=== PATIENT | female | born 1980 | race Caucasian/White ===

== ENCOUNTER 2017-04-28 12:30 | Inpatient (IN) | payer OTHER ==
[~2017-04-28] VITALS: Ht 170.2 cm; Wt 70.8 kg
[2017-05-10] MEDS ORDERED: PRENATAL TABLE1 EAC2 PO (10:44)
[2017-05-10] MEDS ORDERED: INFED50 MG/ML IJ (10:48)
[2017-05-13] MEDS ORDERED: ATABEX EC CAPL1 EACH PO (09:31)
[2017-05-13] MEDS ORDERED: PROFERRIN-FORT1 EACH PO (09:31)
== END 2017-05-13 10:09 | disposition home or self-care (01) | DRG 766 ==
LOC: LDR 05-10 09:55 → OB/GYN 05-10 09:55
PROVIDERS: Obstetrics & Gynecology
PROC: 4A1HXCZ Monitoring of Products of Conception, Cardiac Rate, External Approach (ICD-10-PCS; 2017-05-10)
PROC: 3E033VJ Introduction of Other Hormone into Peripheral Vein, Percutaneous Approach (ICD-10-PCS; 2017-05-10)
PROC: 4A033R1 Measurement of Arterial Saturation, Peripheral, Percutaneous Approach (ICD-10-PCS; 2017-05-10)
PROC: 10D00Z1 Extraction of Products of Conception, Low, Open Approach (ICD-10-PCS; principal; 2017-05-10 18:00)
DX: O61.0 Failed medical induction of labor (principal); O42.92 Full-term premature rupture of membranes, unspecified as to length of time between rupture and onset of labor; Z3A.38 38 weeks gestation of pregnancy; Z37.0 Single live birth

== ENCOUNTER 2019-10-15 13:11 | Emergency (ER) | payer OTHER ==
[~2019-10-15] VITALS: Ht 170.2 cm; Wt 62.6 kg
[~2019-10-15 13:11] MED LIST: ATABEX EC CAPL1 EACH PO; INFED50 MG/ML IJ; PRENATAL TABLE1 EAC2 PO; PROFERRIN-FORT1 EACH PO
== END 2019-10-15 19:42 | disposition home or self-care (01) ==
LOC: ER 13:11
DX: O46.8X1 Other antepartum hemorrhage, first trimester (principal); O23.31 Infections of other parts of urinary tract in pregnancy, first trimester; Z3A.01 Less than 8 weeks gestation of pregnancy

== ENCOUNTER 2021-08-05 13:41 | Outpatient (CLI) | payer OTHER | END 2021-08-05 14:57 | disposition home or self-care (01) | LOC: PRENATAL 13:41 | PROVIDERS: ATTEND Obstetrics & Gynecology Maternal & Fetal Medicine | DX: O09.519 Supervision of elderly primigravida, unspecified trimester (principal); Z3A.15 15 weeks gestation of pregnancy ==

== ENCOUNTER 2021-09-13 12:56 | Outpatient (CLI) | payer OTHER | END 2021-09-13 14:50 | disposition home or self-care (01) | LOC: PRENATAL 12:56 | PROVIDERS: ATTEND Obstetrics & Gynecology Maternal & Fetal Medicine | DX: O35.0XX0 Maternal care for (suspected) central nervous system malformation in fetus, not applicable or unspecified (principal); O35.3XX0 Maternal care for (suspected) damage to fetus from viral disease in mother, not applicable or unspecified; O09.529 Supervision of elderly multigravida, unspecified trimester; O34.219 Maternal care for unspecified type scar from previous cesarean delivery; Z3A.20 20 weeks gestation of pregnancy ==

== ENCOUNTER 2022-01-20 05:03 | Inpatient (IN) | payer OTHER ==
[~2022-01-20] VITALS: Ht 170.2 cm; Wt 3.2 kg
[2022-01-20] MEDS ORDERED: IRON240 MG PO (05:35)
== END 2022-01-22 13:35 | disposition home or self-care (01) | DRG 785 ==
LOC: LDR 05:03 → OB/GYN 05:03 → LDR 05:18 → EDSTATUS 09:15 → OB/GYN 11:24
PROVIDERS: ADMIT Obstetrics & Gynecology; ATTEND Obstetrics & Gynecology
PROC: 0UB70ZZ Excision of Bilateral Fallopian Tubes, Open Approach (ICD-10-PCS; 2022-01-20)
PROC: 4A1HXCZ Monitoring of Products of Conception, Cardiac Rate, External Approach (ICD-10-PCS; 2022-01-20)
PROC: 10D00Z1 Extraction of Products of Conception, Low, Open Approach (ICD-10-PCS; principal; 2022-01-20 08:30)
DX: O34.211 Maternal care for low transverse scar from previous cesarean delivery (principal); Z3A.39 39 weeks gestation of pregnancy; Z37.0 Single live birth; Z20.822 Contact with and (suspected) exposure to COVID-19; Z30.2 Encounter for sterilization